=== PATIENT | male | born 1935 | race Caucasian/White ===

== ENCOUNTER 2019-08-15 08:41 | Emergency (ER) | payer OTHER ==
[~2019-08-15] VITALS: Ht 170.2 cm; Wt 73.5 kg
[2019-08-15 08:41] VITALS: BP_SYST 124
--- NOTE | 2019-08-15 08:45 | NUR ---
Patient triaged and placed in waiting room. VSS and patient appears in no acute distress at this time. Accompanied by AND SON, awaiting available bed, and MD notified of need for MSE.
--- NOTE | 2019-08-15 09:17 | NUR ---
TAKEN TO RADIOLOGY VIA AMBULATORY
--- NOTE | 2019-08-15 09:32 | NUR ---
RETURNED TO WAITING ROOM, AWAITING AN OPEN BED.
[2019-08-15 09:46] LABS: BASOPHILS % (AUTO) 0.4 % (0.0-2.0); EOSINOPHILS # (AUTO) 0.1 K/uL (0.0-0.4); EOSINOPHILS % (AUTO) 0.5 % (0.0-4.0); HEMOGLOBIN 14.8 g/dL (14.0-18.0); LYMPHOCYTES # (AUTO) 1.7 K/uL (1.0-5.5); LYMPHOCYTES % (AUTO) 17.8 % (20.5-51.5); MEAN CORPUSCULAR HEMOGLOBIN 32 pg (27-31); MEAN CORPUSCULAR HGB CONC 34 % (32-36); MEAN CORPUSCULAR VOLUME 94 fL (79.0-98.0); MONOCYTES # (AUTO) 0.7 K/uL (0.0-1.0); NEUTROPHILS # (AUTO) 7.2 K/uL (1.8-7.7); NEUTROPHILS % (AUTO) 74.3 % (40.0-70.0); PLATELET COUNT (AUTO) 248 K/uL (130-430); RED BLOOD CELL COUNT(AUTO) 4.56 MIL/uL (4.2-6.2); RED CELL DISTRIBUTION WIDTH 14.3 % (9.0-15.0); WHITE BLOOD COUNT (AUTO) 9.7 K/uL (4.8-10.8)
[2019-08-15 10:15] LABS: PROTHROMBIN TIME 9.9 SECS (9.5-12.5)
[2019-08-15 10:26] LABS: ANION GAP 6 (5-15); CALCIUM 8.8 mg/dL (8.4-11.0); CHLORIDE 99 mmol/L (98-107); CREATININE 1.35 mg/dL (0.55-1.30); GLUCOSE 105 mg/dL (70-99); POTASSIUM 3.6 mmol/L (3.5-5.1); SODIUM SERUM 131 mmol/L (136-145); UREA NITROGEN, BLOOD 26 mg/dL (8-21)
--- NOTE | 2019-08-15 10:30 | NUR ---
Patient to ER bed 1 to gown for evaluation. Side rails up.
[2019-08-15 10:31] LABS: ALANINE AMINOTRANSFERASE 28 U/L (12-78); ALBUMIN 3.7 g/dL (3.4-4.8); ASPARTATE AMINOTRANSFERASE 26 U/L (10-37); TOTAL BILIRUBIN 0.6 mg/dL (0.0-1.0)
--- NOTE | 2019-08-15 10:36 | NUR ---
ER at bedside examining patient.
--- NOTE | 2019-08-15 10:40 | NUR ---
EKG performed at by Paulo GREEN. Dr Ward Physician given copy of EKG for review.
--- NOTE | 2019-08-15 10:45 | NUR ---
Influenza swab collected
--- NOTE | 2019-08-15 11:15 | NUR ---
pt vitals stable, AO4, no s/s of distress noted on RA, RR even and unlabored
--- NOTE | 2019-08-15 12:00 | NUR ---
Patient transported to radiology via gurney, accompanied by tech
[2019-08-15 12:57] VITALS: BP_SYST 127
--- NOTE | 2019-08-15 13:06 | NUR ---
Patient given written and verbal discharge instructions and verbalizes understanding. ER MD discussed with patient the results and treatment provided. Patient in stable condition. ID arm band removed. Rx of Azithromycin, Motrin, and Sudafed given. Patient educated on pain management and to follow up with PMD. Pain Scale 0/10. Opportunity for questions provided and answered. Medication side effect fact sheet provided.
== END 2019-08-15 13:06 | disposition home or self-care (01) ==
LOC: SED 08:41
DX: J40 Bronchitis, not specified as acute or chronic (principal)
CPT/HCPCS: 36415; 70450-TC; 71046-TC; 80053; 83880; 84484; 85025; 85610-TC; 85730-TC; 86710; 93005; 99284

== ENCOUNTER 2020-10-19 20:39 | Emergency (ER) | payer OTHER ==
[~2020-10-19] VITALS: Ht 170.2 cm; Wt 73.0 kg
[2020-10-19 20:55] VITALS: BP_SYST 138
[2020-10-19 21:51] VITALS: BP_SYST 135
== END 2020-10-19 21:51 | disposition home or self-care (01) ==
LOC: SED 20:39
DX: R04.0 Epistaxis (principal); I10 Essential (primary) hypertension; E87.6 Hypokalemia; Z95.0 Presence of cardiac pacemaker
CPT/HCPCS: 99281

== ENCOUNTER 2022-08-22 09:25 | Emergency (ER) | payer OTHER ==
[~2022-08-22] VITALS: Ht 170.2 cm; Wt 70.3 kg
[2022-08-22 09:31] VITALS: BP_SYST 133
--- NOTE | 2022-08-22 09:42 | NUR ---
Placed in room 02 . Placed on monitor technician, blood pressure machine and pulse oximeter. To gown for exam. Side rails up. Report given to NORMA SERRANO.
--- NOTE | 2022-08-22 09:43 | NUR ---
ER DR. GUARDADO EXAMINING PT
--- NOTE | 2022-08-22 09:45 | NUR ---
Sameer helton in [facility] - 08/22/22 at 0945 by [email or web address] Patient to bed to [facility] for evaluation. Side rails up.
--- NOTE | 2022-08-22 09:47 | NUR ---
Pt brought by self, A&Ox4, ambulatory, pt presents to ER with L flank pain /, denies recent trauma, denies chest pain or SOB, VSS, skin pink and warm,cap refill <3.
[2022-08-22 10:02] LABS: BILIRUBIN,URINE 1+ (NEGATIVE); CLARITY/URINE CLEAR (CLEAR); COLOR,URINE YELLOW (YELLOW); GLUCOSE,URINE TRACE (NEGATIVE); KETONES,URINE TRACE (NEGATIVE); LEUKOCYTE ESTERASE ,URINE NEGATIVE (NEGATIVE); NITRITE, URINE NEGATIVE (NEGATIVE); PROTEIN URINE 1+ (NEGATIVE)
[2022-08-22 10:04] LABS: BLOOD, URINE TRACE (NEGATIVE)
[2022-08-22 10:07] LABS: BASOPHILS % (AUTO) 0.4 % (0.0-2.0); EOSINOPHILS # (AUTO) 0.1 K/uL (0.0-0.4); EOSINOPHILS % (AUTO) 1.2 % (0.0-4.0); HEMATOCRIT 39.7 % (36-54); HEMOGLOBIN 13.2 g/dL (14.0-18.0); LYMPHOCYTES # (AUTO) 1.3 K/uL (1.0-5.5); LYMPHOCYTES % (AUTO) 19.7 % (20.5-51.5); MEAN CORPUSCULAR HEMOGLOBIN 31 pg (27-31); MEAN CORPUSCULAR HGB CONC 33 % (32-36); MEAN CORPUSCULAR VOLUME 94 fL (79.0-98.0); MONOCYTES # (AUTO) 0.6 K/uL (0.0-1.0); MONOCYTES % (AUTO) 9.3 % (1.7-9.3); NEUTROPHILS # (AUTO) 4.7 K/uL (1.8-7.7); NEUTROPHILS % (AUTO) 69.4 % (40.0-70.0); PLATELET COUNT (AUTO) 174 K/uL (130-430); RED BLOOD CELL COUNT(AUTO) 4.25 MIL/uL (4.2-6.2); RED CELL DISTRIBUTION WIDTH 13.6 % (9.0-15.0); WHITE BLOOD COUNT (AUTO) 6.8 K/uL (4.8-10.8)
[2022-08-22 10:09] LABS: BACTERIA,URINE None Seen /HPF (None Seen); MUCUS,URINE None Seen /LPF (None Seen); RBC,URINE 0-3 /HPF (0-3); WBC,URINE 0-3 /HPF (0-3)
[2022-08-22 10:21] LABS: ANION GAP 8 (5-15); CALCIUM 8.8 mg/dL (8.4-11.0); CHLORIDE 102 mmol/L (98-107); CREATININE 1.09 mg/dL (0.55-1.30); GLUCOSE 101 mg/dL (70-99); UREA NITROGEN, BLOOD 22 mg/dL (8-21)
[2022-08-22 10:27] LABS: PROTHROMBIN TIME 10.4 SECS (9.5-12.5)
[2022-08-22 10:31] LABS: ALANINE AMINOTRANSFERASE 19 U/L (12-78); ALBUMIN 3.7 g/dL (3.4-4.8); AMYLASE 43 U/L (0-100); ASPARTATE AMINOTRANSFERASE 33 U/L (10-37); C-REACTIVE PROTEIN QUANT < 0.2 mg/dL (0-0.5); LACTATE DEHYDROGENASE 266 U/L (85-227); LIPASE 68 U/L (73-393); TOTAL BILIRUBIN 0.8 mg/dL (0.0-1.0)
[2022-08-22 10:36] LABS: ACETONE, SERUM NEGATIVE (NEGATIVE)
[2022-08-22] MEDS ORDERED: HYDR-3917 PO (12:14)
[2022-08-22] MEDS ORDERED: IBUP-1969 PO (12:14)
[2022-08-22 12:40] VITALS: BP_SYST 133
--- NOTE | 2022-08-22 12:42 | NUR ---
Patient given written and verbal discharge instructions and verbalizes understanding. ER MD discussed with patient the results and treatment provided. Patient in stable condition. ID arm band removed. IV catheter removed intact and dressing applied, no active bleeding. Rx of Richey and Ibuprofen given. Patient educated on pain management and to follow up with PMD. Pain Scale 0/10. Opportunity for questions provided and answered. Medication side effect fact sheet provided.
== END 2022-08-22 12:40 | disposition home or self-care (01) ==
LOC: SED 09:25
DX: R10.9 Unspecified abdominal pain (principal); I10 Essential (primary) hypertension; Z79.899 Other long term (current) drug therapy
CPT/HCPCS: 36415; 76376; 80053; 81000; 82009; 82150; 83605; 83615; 83690; 84484; 85025; 85610-TC; 85730-TC; 86140; 99284

== ENCOUNTER 2022-09-16 09:54 | Emergency (ER) | payer OTHER ==
[~2022-09-16] VITALS: Ht 165.1 cm; Wt 69.4 kg
[~2022-09-16 09:54] MED LIST: HYDR-3917 PO; IBUP-1969 PO
[2022-09-16 10:00] VITALS: BP_SYST 156
[2022-09-16] MEDS ORDERED: KETOROLAC TROMETHAMINE 60 MG/2 ML VIAL IM ONE (10:15)
--- NOTE | 2022-09-16 10:32 | NUR ---
Patient to ER bed 3 for evaluation. Side rails up. Report taken by NORMA Cason. Patient escorted to XRAY and given toradol upon return..
--- NOTE | 2022-09-16 10:35 | NUR ---
ED MD AT BEDSIDE EXAMENING THE PT.
[2022-09-16] MEDS ORDERED: IBUP-1969 PO (11:02)
[2022-09-16 11:15] VITALS: BP_SYST 140
--- NOTE | 2022-09-16 11:15 | NUR ---
PT MEDICALLY CLEARED FOR D/C. D/C INSTRUCTIONS GIVEN TO PT. PT TO FOLLOW UP WITH PCP WITHIN 1-3 DAYS AND TO RETURN TO ED FOR WORSENING S/S. PT VERBALIZED UNDERSTANDING. PT AAX04, NAD, BREATHING IS EVEN AND UNLABORED, WRISTBAND REMOVED. PT AMBULATORY WITH STEADY GAIT. PT LEFT ED WITH ALL BELONINGS.
== END 2022-09-16 11:15 | disposition home or self-care (01) ==
LOC: SED 09:54
DX: M25.512 Pain in left shoulder (principal); I11.0 Hypertensive heart disease with heart failure; I50.9 Heart failure, unspecified; Z79.899 Other long term (current) drug therapy
CPT/HCPCS: 99283; 73030; 96372; J1885

== ENCOUNTER 2022-10-14 10:29 | Emergency (ER) | payer OTHER ==
[~2022-10-14] VITALS: Ht 160 cm; Wt 63.5 kg
[2022-10-14 10:55] VITALS: BP_SYST 126
--- NOTE | 2022-10-14 11:15 | NUR ---
PT CAME IN TO ED ACCOMPANIED BY SON. CHIEF COMPLAINT OF LEFT LEG PAIN. 5/10 PAIN GRADIANT. 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 PT AOX4, IN BED AT LOWEST POSITION SIDE RAILS UP.
--- NOTE | 2022-10-14 11:17 | NUR ---
ER at bedside examining patient.
--- NOTE | 2022-10-14 12:06 | NUR ---
RADIOLOGY AT BEDSIDE PERFORMING ULTRA SOUND OF LOWER EXTREMITY.
[2022-10-14] MEDS ORDERED: FURO-150 PO (12:57)
[2022-10-14 13:15] VITALS: BP_SYST 125
--- NOTE | 2022-10-14 13:17 | NUR ---
Patient given written and verbal discharge instructions and verbalizes understanding. ER MD DR MCCOY discussed with patient the results and treatment provided. Patient in stable condition. ID arm band removed. Rx of LASIX given. Patient educated on pain management and to follow up with PMD. Pain Scale 2/10. Opportunity for questions provided and answered. Medication side effect fact sheet provided.
== END 2022-10-14 13:17 | disposition home or self-care (01) ==
LOC: SED 10:29
DX: R60.9 Edema, unspecified (principal); I10 Essential (primary) hypertension; Z79.899 Other long term (current) drug therapy
CPT/HCPCS: 93971; 99284